=== PATIENT | female | born 1990 | race Caucasian/White ===

== ENCOUNTER → 2020-03-14 | Outpatient (CLI) | payer OTHER ==
--- NOTE | 2020-03-20 12:44 | SLEEPHOME ---
DATE OF PROCEDURE: 03/14/2020 ORDERED BY: Elsy Bonilla PA-C Diagnostic home sleep testing was performed due to concern for the obstructive sleep apnea syndrome in this patient with fatigue. For testing a nocturnal T3 respiratory monitoring device was used. Continuous record was made of pulse, oxygen saturation, airflow, chest and abdominal strain, and body position. 9 hours and 59 minutes of data were reviewed. There were 8 hours and 59 minutes marked as time in bed. During the interval marked time in bed, there were 63 respiratory events identified of 10 seconds in duration or greater for a respiratory event index of 70. The events were not exclusive to any particular sleep posture. They were primarily obstructive. Baseline pulse rate 75. Pulse rate ranged 55-112. Baseline saturation was 95%. Saturations fell to 90% surrounding respiratory events. Testing was performed in both the supine and nonsupine positions. IMPRESSION: Abnormal home sleep testing with repetitive respiratory events and oxygen desaturations to 90% with a respiratory event index of 7 is consistent with the obstructive sleep apnea syndrome. RECOMMENDATIONS: The patient should be encouraged to undergo formal sleep evaluation.
== END ==
LOC: M SLEEP HO 03-08 09:59
PROVIDERS: ATTEND Physician Assistant
DX: R53.83 Other fatigue (principal); G47.00 Insomnia, unspecified

== ENCOUNTER → 2020-04-30 | Emergency (ER) | payer OTHER ==
[~2020-04-30] MED LIST: ACETAMINOPHEN 500 MG TAB As Ordered ONE; ACETAMINOPHEN 500 MG TAB ONE; IBUPROFEN 800 MG TAB As Ordered ONE; diphenhydrAMINE 25MG CAP As Ordered ONE; diphenhydrAMINE 25MG CAP ONE
--- NOTE | 2020-06-21 08:57 | REP ---
CT OF THE HEAD WITHOUT CONTRAST: HISTORY: Severe migraine headaches. TECHNIQUE: Axial noncontrast images from the skull base to the vertex with coronal reformations. FINDINGS: The ventricles, sulci and cisterns are symmetric and normal. Zimmer-white differentiation is maintained. No acute intracranial hemorrhage, mass or mass effect. No extra-axial fluid collection. The calvarium is intact. The paranasal sinuses and mastoid air cells are clear. IMPRESSION: Negative noncontrast head CT. No evidence for acute intracranial pathology. MTDD
== END | disposition home or self-care (01) ==
LOC: M ED 14:09
DX: R51 Headache (principal); F41.9 Anxiety disorder, unspecified; L30.9 Dermatitis, unspecified; Z97.5 Presence of (intrauterine) contraceptive device; Z79.899 Other long term (current) drug therapy

== ENCOUNTER → 2020-10-16 | Outpatient (CLI) | payer SELFPAY | LOC: M LABSMTC 13:33 | PROVIDERS: ATTEND Pediatrics | DX: Z20.822 Contact with and (suspected) exposure to COVID-19 (principal) ==

== ENCOUNTER 2021-09-30 13:02 | Emergency (ER) | payer OTHER ==
[~2021-09-30] VITALS: Ht 157.5 cm; Wt 90.9 kg
[2021-09-30 13:04] VITALS: BP 134/71
[2021-09-30] MEDS ORDERED: TEST25GE2 (13:18)
[2021-09-30] MEDS ORDERED: BUPR300T92 (13:18)
[2021-09-30] MEDS ORDERED: BUSP10TA (13:18)
[2021-09-30] MEDS ORDERED: HYDR200T3 (13:18)
[2021-09-30] MEDS ORDERED: LAMO25TA4 (13:18)
[2021-09-30] MEDS ORDERED: AUGM875T28 PO (14:20)
[2021-09-30] MEDS ORDERED: LIDOCAINE VISCOUS 2% SOLN 15ML UDC SSP ONE (14:20)
[2021-09-30] MEDS ORDERED: LIDO2SOL17 PO (14:26)
== END 2021-09-30 15:34 | disposition home or self-care (01) ==
LOC: M ED 13:02
DX: K08.89 Other specified disorders of teeth and supporting structures (principal); Z79.899 Other long term (current) drug therapy